=== PATIENT | male | born 1945 | race Caucasian/White ===

== ENCOUNTER 2017-08-22 10:25 | Emergency (ER) | payer MEDICARE, OTHER ==
[~2017-08-22] VITALS: Ht 175.3 cm; Wt 84.8 kg
[~2017-08-22 10:25] MED LIST: AZOP1SUS BOTH EYES; COLY4000S PO; LEVA750T9 PO; LISI-366 PO; LUMI0.01 EACH EYE; TOPR100T15 PO
[2017-08-22 10:33] VITALS: BP 180/94; PULSE 57; RESP 16; TEMP 97.5; O2SAT 99
[2017-08-22] MEDS ORDERED: TOPR100T PO (10:39)
[2017-08-22] MEDS ORDERED: LUMI0.01 EACH EYE (10:39)
[2017-08-22] MEDS ORDERED: LISI40TA PO (10:39)
[2017-08-22] MEDS ORDERED: AZOP1SUS EACH EYE (10:39)
[2017-08-22] MEDS ORDERED: LISI-515 PO (10:39)
--- NOTE | 2017-08-22 12:09 | RADRPT ---
EXAM DATE/TIME: 08/22/2017 11:20 [place] COMPARISON: No previous studies available for comparison. INDICATIONS : Right knee pain and swelling after playing golf. MEDICAL HISTORY : None. SURGICAL HISTORY : Right knee meniscus repair and cyst removal ENCOUNTER: Initial ACUITY: 3 days PAIN SCORE: 8/10 LOCATION: Right entire knee FINDINGS: Multiple views of the knee show joint space narrowing with periarticular sclerotic change and osteoph yte production. No fracture or dislocation. No joint effusion. Soft tissues are unremarkable. CONCLUSION: Advanced tricompartmental osteoarthritis. Carlton Pinto Jr., MD on August 22, 2017 at 11:57 Board Certified Radiologist. This report was verified electronically.
[2017-08-22] MEDS ORDERED: TRAM50 PO (12:18)
--- NOTE | 2017-08-22 12:18 | PD ---
HPI Chief Complaint: Musculoskeletal Complaint Time Seen by Provider: 10:58 Travel History International Travel<30 days: No Contact w/Intl Traveler<30days: No Traveled to known affect area: No History of Present Illness HPI 72-year-old male here with right knee pain and swelling after playing golf. Reports previous meniscal injury with repair years prior. Pain is worse with walking and flexion of the knee. Slightly relieved with rest. Symptom severity is moderate. Denies fever or chills. PFSH Past Medical History Glaucoma: Yes Hypertension: Yes Social History Alcohol Use: Yes Tobacco Use: No Substance Use: No Allergies-Medications (Allergen,Severity, Reaction): Coded Allergies: No Known Allergies (Unverified Allergy, Unknown, 08/22/17) Uncoded Allergies: ANTIHISTAMINES (Adverse Reaction, Unknown, HYPERTENSION, 08/22/17) Reported Meds & Prescriptions Reported Meds & Active Scripts Active Ultram (Tramadol HCl) 50 Mg Tab 50 Mg PO Q6H PRN Reported Toprol XL (Metoprolol Succinate) 100 Mg Tab 100 Mg PO DAILY Lisinopril 40 Mg Tab 40 Mg PO DAILY Lisinopril 20 Mg Tab 20 Mg PO HS Azopt Opth Drops (Brinzolamide) 1% Susp 1 Drop EACH EYE TID Lumigan Opth Drops (Bimatoprost) 0.01% Soln 1 Drop EACH EYE HS Review of Systems Except as stated in HPI: all other systems reviewed are Neg General / Constitutional: No: Fever Physical Exam Narrative GENERAL: Alert and well-appearing 9-year-old male SKIN: Warm and dry. HEAD: Normocephalic. EYES:No injection or drainage. NECK: Supple MUSCULOSKELETAL: No cyanosis. Right knee: Moderate sized joint effusion. No overlying warmth or erythema. The joint is stable. No obvious deformity. Palpable popliteal and DP pulse. Normal sensation. Brisk cap refill Data Data Last Documented VS Orders Orders Knee, Complete (4vws) (08/22/17 ) ^ Knee Immobilizer (08/22/17 12:14) Ed Discharge Order (08/22/17 12:18) MDM Medical Decision Making Medical Screen Exam Complete: Yes Emergency Medical Condition: Yes Differential Diagnosis Fracture, ligamental injury, tendon injury Narrative Course 72-year-old male here with right knee pain and swelling after playing golf. Patient had previous meniscal injury with repair years prior. He has a moderate -sized joint effusion. The extremity is neurovascularly intact. X-rays negative for fracture. He was placed in a knee immobilizer. Instructed to continue NSAIDs, ice, elevate the extremity. Pain medication as needed for severe pain. He is to follow-up with orthopedic doctor. Diagnosis Primary Impression: Right knee pain Qualified Codes: M25.561 - Pain in right knee Referrals: Prince Gillette MD,James Leavitt MD Orthopedist Additional Instructions: Ice and elevate the extremity. Continue Advil as directed. Pain medication as needed for severe pain. Make a follow-up appointment with orthopedic doctor for reevaluation. Scripts Tramadol (Ultram) 50 Mg Tab 50 MG PO Q6H Y for PAIN, #12 TAB 0 Refills Prov: Adriana Calvin 08/22/17 Disposition: 01 DISCHARGE HOME Adriana Calvin Aug 22, 2017 12:18
== END 2017-08-22 12:47 | disposition home or self-care (01) ==
LOC: PHEFT 10:25
DX: M25.561 Pain in right knee (principal); I10 Essential (primary) hypertension; H40.9 Unspecified glaucoma
CPT/HCPCS: 73564; 99283